=== PATIENT | female | born 1975 | race American Indian/Alaskan Native ===

== ENCOUNTER 2020-03-20 16:22 | Emergency (ER) | payer SELFPAY ==
[2020-03-20 16:44] VITALS: BP 131/64
--- NOTE | 2020-03-20 19:32 | Emergency Department Report ---
Upper Extremity - HPI Chief Complaint: Extremity Problem,Nontraumatic Stated Complaint: RT ARM PAIN/TIGHT Time Seen by Provider: 03/20/20 19:27 Upper Extremity: Right Arm, Right Elbow Occurred When: Today Severity: moderate Symptoms: Yes Pain with Movement, No Deformity, No Limited Range of Movement, No Numbness, No Weakness, No Swelling, No Bruising/Ecchymosis, No Laceration or Abrasion Other History: 44-year-old -[place] female presents to the emergency room complaining of right arm pain and stiffness. 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 Patient is taken nothing for pain. ED Review of Systems ROS: Stated complaint: RT ARM PAIN/TIGHT Other details as noted in HPI Comment: All other systems reviewed and negative ED Past Medical Hx - Past Medical History Previous Medical History?: No - Surgical History Past Surgical History?: No Hx Cholecystectomy: Yes Additional Surgical History: Hernia repair. C section - Medications Home Medications: Home Medications Medication Instructions Recorded Confirmed Last Taken Type Ibuprofen [Motrin 800 MG tab] 800 mg PO Q8HR PRN 10 Days #30 03/20/20 Unknown Rx tablet Upper Extremity Exam - Exam General: Vital signs noted. No distress. Alert and acting appropriately. Head and Torso: No HEENT Abnormality, No Neck Tenderness, No Chest/Lungs Abnormality, No Abdominal Tenderness, No Back Tenderness Shoulder Exam: Yes Normal Range of Motion in Shoulder, No Shoulder Tenderness, No Clavicle Tenderness, No Shoulder Deformity, No AC Joint Tenderness Arm Exam: No Arm/Humerus Tenderness, No Arm Deformity Elbow: Yes Elbow Tenderness, No Normal Range of Motion in Elbow, No Elbow Deformity Forearm: No Forearm Tenderness, No Forearm Deformity, No Pain with Pronation, No Pain with Supination Wrist: Yes Normal ROM in Wrist, No Wrist Tenderness, No Wrist Deformity, No Snuffbox Tenderness, No Pain with Axial Thumb Compression CMS Exam: Yes Normal Distal Pulses, Yes Normal Capillary Refill, Yes Normal Distal Sensation, No Broken Skin (Blister on her right forearm) ED Course Vital Signs 03/20/20 16:43 Temperature 98.3 F Pulse Rate 86 Respiratory 16 Rate Blood Pressure 131/64 [Right] O2 Sat by Pulse 100 Oximetry ED Medical Decision Making - Medical Decision Making 44-year-old -[place] female presents to the emergency room complaining of right arm pain and stiffness. 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 Patient is taken nothing for pain. Critical care attestation.: If time is entered above; I have spent that time in minutes in the direct care of this critically ill patient, excluding procedure time. ED Disposition Clinical Impression: Tennis elbow syndrome Disposition: TO HOME OR SELFCARE Is pt being admited?: No Does the pt Need Aspirin: No Condition: Stable Instructions: Tennis Elbow (ED) Additional Instructions: You can use a elbow sleeve for your right elbow. Take ibuprofen as needed for pain management. Prescriptions: Ibuprofen [Motrin 800 MG tab] 800 mg PO Q8HR PRN 10 Days #30 tablet PRN Reason: Pain , Severe (7-10) Referrals: PRIMARY CAREMD [Primary Care Provider] - 3-5 Days AYDEE MONTALVO MD [Staff Physician] - 3-5 Days Forms: Work/School Release Form(ED)
== END 2020-03-20 20:08 | disposition home or self-care (01) ==
LOC: ED 16:22
DX: M77.11 Lateral epicondylitis, right elbow (principal); Z79.1 Long term (current) use of non-steroidal anti-inflammatories (NSAID)
CPT/HCPCS: 99281